=== PATIENT | male | born 1995 | race African-American/Black ===

== ENCOUNTER 2022-02-13 15:27 | Emergency (ER) | payer OTHER ==
[2022-02-13 16:08] VITALS: RESP 16; BMI 21.2
[2022-02-13] MEDS ORDERED: ACETAMINOPHEN 1000 MG/100 ML BAG IVPB ONE (16:52)
[2022-02-13] MEDS ORDERED: FAMOTIDINE 20 MG/50 ML IVPB 20 MG/50 ML MG IVPB ONE ×2 (16:52→17:18)
[2022-02-13] MEDS ORDERED: ONDANSETRON 4 MG/2 ML VIAL IVPUSH ONE (16:52)
[2022-02-13] MEDS ORDERED: SODIUM CHLORIDE 1,000 ML IV STA (16:52)
[2022-02-13] MEDS ORDERED: ACETAMINOPHEN INJECTION 100 ML IVPB ONE (17:17)
[2022-02-13] MEDS ORDERED: ONDANSETRON 4 MG/2 ML VIAL ONE (17:18)
[2022-02-13 18:04] LABS: BASO % 0.9 % (0-2.0); EOS % 1.9 % (0-4.5); HEMATOCRIT 44.1 % (35.4-49); LYMPH % 31.1 % (8-40); MCH 30.5 pg (25.7-33.7); MCHC 33.9 g/dl (32.0-35.9); MEAN CELL VOLUME 89.9 fl (80-96); MEAN PLT VOLUME 8.4 fl (7.5-11.1); MONO % 8.7 % (3.8-10.2); NEUT % 57.4 % (42.8-82.8); PLATELET COUNT 196 10^3/uL (134-434); WHITE BLOOD COUNT 5.9 K/mm3 (4.0-10.0)
[2022-02-13 18:05] LABS: URINE APPEARANCE CLEAR; URINE BILIRUBIN NEGATIVE (NEGATIVE); URINE COLOR YELLOW; URINE GLUCOSE (UA) NEGATIVE (NEGATIVE); URINE KETONE 2+ (NEGATIVE); URINE LEUK ESTERASE NEGATIVE (NEGATIVE); URINE NITRITE NEGATIVE (NEGATIVE); URINE PROTEIN NEGATIVE (NEGATIVE)
[2022-02-13 18:14] LABS: INR 1.13 (0.83-1.09)
[2022-02-13 18:22] LABS: ALBUMIN 4.5 g/dl (3.4-5.0); CALCIUM 9.7 mg/dL (8.5-10.1)
[2022-02-13 18:23] LABS: BLOOD UREA NITROGEN 17.9 mg/dL (7-18)
[2022-02-13 18:25] LABS: CREATININE 1.2 mg/dL (0.55-1.3)
[2022-02-13 18:27] LABS: BILIRUBIN,TOTAL 1.4 mg/dL (0.2-1); TOT PROT 8.3 g/dl (6.4-8.2)
[2022-02-13 19:12] VITALS: BP 117/66; PULSE 60; TEMP 98
== END 2022-02-13 20:32 | disposition home or self-care (01) ==
LOC: JERFT 15:27 → JER 15:27 → JERFT 20:32
PROC: 3E0333Z Introduction of Anti-inflammatory into Peripheral Vein, Percutaneous Approach (ICD-10-PCS; principal; 2022-02-13)
PROC: 3E033GC Introduction of Other Therapeutic Substance into Peripheral Vein, Percutaneous Approach (ICD-10-PCS; 2022-02-13)
PROC: 3E033GC Introduction of Other Therapeutic Substance into Peripheral Vein, Percutaneous Approach (ICD-10-PCS; 2022-02-13)
PROC: 3E0337Z Introduction of Electrolytic and Water Balance Substance into Peripheral Vein, Percutaneous Approach (ICD-10-PCS; 2022-02-13)
DX: A09 Infectious gastroenteritis and colitis, unspecified (principal)
CPT/HCPCS: 36415; 74176-TC; 80053; 81003; 83690; 85025; 85610; 86850; 86900; 86901; 87086; 87491; 87591; 99284-25